=== PATIENT | female | born 1960 | race Caucasian/White ===

== ENCOUNTER → 2021-01-01 | Outpatient (CLI) | payer OTHER | LOC: HEART CORB 14:30 | DX: J44.9 Chronic obstructive pulmonary disease, unspecified (principal); R07.89 Other chest pain; R06.02 Shortness of breath; R00.2 Palpitations; I27.20 Pulmonary hypertension, unspecified; R93.1 Abnormal findings on diagnostic imaging of heart and coronary circulation; I34.0 Nonrheumatic mitral (valve) insufficiency | CPT/HCPCS: 93306 ==

== ENCOUNTER → 2021-01-15 | Outpatient (CLI) | payer OTHER | LOC: HEART CORB 10:00 | DX: R06.00 Dyspnea, unspecified (principal); R07.2 Precordial pain; R06.02 Shortness of breath | CPT/HCPCS: 78452; A9502; J2785 ==